=== PATIENT | male | born 1940 | race Caucasian/White ===

== ENCOUNTER 2016-09-10 14:14 | Inpatient (IN) | payer MEDICARE, BC ==
[~2016-09-10] VITALS: Ht 185.4 cm; Wt 110.8 kg
[~2016-09-10 14:14] MED LIST: ACETAMINOPHEN500 M1 PO; BAYER CHEWABLE81 MG PO; BENADRYL25 MG PO; COLACE100 MG PO; CULTURELLE1 CAP; DILAUDID 012 MG/30 M IV; DURAGESIC1 PATCH .1 TRANSDERM; ELIQUIS2.5 MG PO; GLUCOSAMINE HC500 MG PO; LASIX80 MG PO; NS 0.9% IV; ONDANSETRON4 MG/2 M3 IV; PERCOCET 10/3251 TA1 PO; PLAVIX75 MG PO; POTASSIUM99 M1 PO; VITAMIN D5000 UNIT PO; ZOFRAN4 MG PO; [UNRECOGNIZED DRUG - OTHER] IV
[2016-09-10 15:49] LABS: BASOPHILS 0.2 % (0-2); EOSINOPHILS 0.3 % (0-7); HEMATOCRIT 38.7 % (42.0-54.0); HEMOGLOBIN 13.4 g/dL (13.5-17.5); IMMATURE GRANULOCYTES 0.2 % (0-5); MCH 32.4 pg (26.0-34.0); MCHC 34.6 g/dL (31.0-37.0); MCV 93.7 fL (80.0-100.0); MEAN PLATELET VOLUME 9.5 fL (7.4-10.4); MONOCYTES 5.1 % (2-11); NEUTROPHILS 87.2 % (40-80); RBC 4.13 10x6/uL (4.20-6.10); RDW 12.8 % (11.5-14.5); WBC 6.3 10x3/uL (4.8-10.8)
[2016-09-10 16:02] LABS: PLATELET COUNT 142 10x3/uL (130-400)
[2016-09-10 16:27] LABS: ANION GAP 13.3 mmol/L (8-16); CALCIUM 9.5 mg/dL (8.5-10.1); CARBON DIOXIDE 21.9 mmol/L (21.0-32.0); CREATININE - SERUM 1.3 mg/dL (0.6-1.3); POTASSIUM - SERUM 4.2 mmol/L (3.5-5.1)
[2016-09-10 23:11] VITALS: BP 177/81
[2016-09-11] VITALS (7 sets, daily range): BP systolic 119–169; BP diastolic 51–89; Ht 185.4 cm; Wt 110.8 kg
[2016-09-11 05:17] LABS: BASOPHILS 0 % (0-2); EOSINOPHILS 0 % (0-7); HEMATOCRIT 36.9 % (42.0-54.0); HEMOGLOBIN 12.9 g/dL (13.5-17.5); LYMPHOCYTES 6.6 % (15-50); MCH 32.5 pg (26.0-34.0); MCV 92.9 fL (80.0-100.0); MEAN PLATELET VOLUME 9.4 fL (7.4-10.4); MONOCYTES 1.3 % (2-11); NEUTROPHILS 92.1 % (40-80); PLATELET COUNT 124 10x3/uL (130-400); RBC 3.97 10x6/uL (4.20-6.10); RDW 12.5 % (11.5-14.5)
[2016-09-11 05:28] LABS: WBC 3.8 10x3/uL (4.8-10.8)
[2016-09-11 05:48] LABS: ALBUMIN 3.4 g/dL (3.4-5.0); ANION GAP 14.3 mmol/L (8-16); BILIRUBIN - TOTAL 0.5 mg/dL (0.2-1.3); CALCIUM 9.1 mg/dL (8.5-10.1); CARBON DIOXIDE 23.7 mmol/L (21.0-32.0); CREATININE - SERUM 1.4 mg/dL (0.6-1.3); PHOSPHOROUS 2.8 mg/dL (2.5-4.9); PROTEIN - SERUM 6.9 g/dL (6.4-8.2)
--- NOTE | 2016-09-11 07:35 | NUR ---
SHINE RENDONLANJOSELO ADMINISTERED FOR PT C/O HEARTBURN. REMAINS IN DROPLET ISOLATION. ASSESSMENT PERFORMED PER FLOWSHEET. PROVIDED PT WITH SPUTUM CULTURE CUP AND EXPLAINED TO CALL WHEN HE WAS ABLE TO PROVIDE A SPUTUM SAMPLE. PT VERBALIZED UNDERSTANDING. CALL LIGHT IN REACH, WILL CONTINUE WITH PLAN OF CARE.
--- NOTE | 2016-09-11 19:00 | NUR ---
BEDSIDE REPORT RECEIVED AND CARE OF PT ASSUMED. PT LYING IN SEMI SIERRA'S POSITOIN VISITING WITH FAMILY MEMBER. DROPLET ISOLATION PRECAUTIONS ARE IN PLACE. IV IN LEFT HAND PATENT WITH NS INFUSING AT 30 ML / HR. WILL MONITOR CLOSLEY FOR NEEDS. CALL LIGHT WITHIN REACH.
--- NOTE | 2016-09-11 21:46 | NUR ---
HS MEDICATIONS GIVEN. WILL CONTINUE TO MONITOR FOR NEEDS.
--- NOTE | 2016-09-11 23:50 | NUR ---
GAVE DAX OF X2 JF KOTHARI. WILL CONTINUE TO MONITOR FOR NEEDS.
[2016-09-12] VITALS: BP 167/80
--- NOTE | 2016-09-12 03:54 | NUR ---
PT RESTING QUIETLY AT THIS TIME WITH EYES CLOSED AND UNLABORED BREATHING. CALL LIGHT WITHIN REACH.
[2016-09-12 04:00] VITALS: BP 141/71
[2016-09-12 05:26] LABS: ALBUMIN 3.2 g/dL (3.4-5.0); ANION GAP 13.8 mmol/L (8-16); BILIRUBIN - TOTAL 0.3 mg/dL (0.2-1.3); CALCIUM 9.1 mg/dL (8.5-10.1); CARBON DIOXIDE 24.7 mmol/L (21.0-32.0); CREATININE - SERUM 1.7 mg/dL (0.6-1.3); POTASSIUM - SERUM 4.5 mmol/L (3.5-5.1); PROTEIN - SERUM 6.1 g/dL (6.4-8.2)
[2016-09-12 05:56] LABS: BASOPHILS 0 % (0-2); EOSINOPHILS 0 % (0-7); HEMATOCRIT 35.1 % (42.0-54.0); HEMOGLOBIN 12.2 g/dL (13.5-17.5); IMMATURE GRANULOCYTES 0.1 % (0-5); LYMPHOCYTES 4.5 % (15-50); MCH 32.2 pg (26.0-34.0); MCHC 34.8 g/dL (31.0-37.0); MCV 92.6 fL (80.0-100.0); MEAN PLATELET VOLUME 9.7 fL (7.4-10.4); NEUTROPHILS 91.4 % (40-80); PLATELET COUNT 140 10x3/uL (130-400); RBC 3.79 10x6/uL (4.20-6.10); RDW 12.9 % (11.5-14.5)
[2016-09-12 06:04] LABS: WBC 7.3 10x3/uL (4.8-10.8)
[2016-09-12 07:40] VITALS: BP 142/70
--- NOTE | 2016-09-12 07:50 | NUR ---
AWAKE AND ALERT AT THIS TIME. IV TO LEFT HAND PATENT WITH NO S/S OF INFILTRATION PRESENT. REMAINS IN DROPLET ISOLATION. DENIES PAIN OR NEEDS AT THIS TIME. CALL LIGHT IN REACH, WILL CONTINUE WITH PLAN OF CARE.
--- NOTE | 2016-09-12 10:15 | NUR ---
REMAINS IN DROPLET ISOLATION AT THIS TIME. SCHEDULED MEDICATIONS ADMINISTERED AT THIS TIME. IV TO LEFT HAND PATENT. DENIES NEEDS AT THIS TIME. CALL LIGHT IN REACH, WILL CONTINUE WITH PLAN OF CARE.
[2016-09-12 12:24] VITALS: BP 144/67
[2016-09-12 15:34] VITALS: BP 166/79
--- NOTE | 2016-09-12 15:39 | NUR ---
Patient Name: LISHA PRUITT Admission Status: ER Accout number: [id number] Admission Date: 09-11-2016 : 1940 Admission Diagnosis:FLU DUE TO OTH IDENT INFLUENZA VIRUS W OTH RESP MANIFES Attending: HAY Current LOS: 1 Anticipated DC Date: 09-16-2016 Planned Disposition: Home Primary Insurance: MEDICARE A & B Discharge Planning Comments: CM MET WITH PATIENT REGARDING D/C NEEDS AND PLANS. PATIENT STATED HE LIVES ALONE AND HE WILL DRIVE HIMSELF HOME AT DISCHARGE. PATIENT HAS NO STEPS OR STAIRS AT HIS HOME. PATIENT STATED HE IS INDEPENDENT WITH HIS CARE AND HAS A WALKER, CANE, CRUTCHES, AND A BUILT IN SHOWER CHAIR. PATIENTS PCP IS DR. VALDEZ AND PHARMACY IS [facility] [address]. PATIENT DOES NOT WANT HOME HEALTH. CM WILL CONTINUE TO FOLLOW PATIENT WITH D/C NEEDS AND PLANS. PCP DR. [facility] [address] [phone] PETRONA CRENSHAW (FRIEND) [phone] Tying Machine Operator: Nayeli Diallo Is the patient Alert and Oriented? Yes 0 * How many steps to enter\exit or inside your home? 0 0 * PCP DR. VALDEZ 0 * Pharmacy [facility] [address] 0 * Preadmission Environment Home Alone 0 * ADLs Independent 0 * Equipment Cane Crutch Shower Chair Walker 0 * List name and contact numbers for known caregivers / representatives who currently or will assist patient after discharge: PETRONA CRENSHAW [phone] * Community resources currently utilized None 0 * Additional services required to return to the preadmission environment? Yes 0 * Can the patient safely return to the preadmission environment? Yes 0 * Has this patient been hospitalized within the prior 30 days at any hospital? No 0 Grand Total: 0
[2016-09-12 19:00] VITALS: BP 154/79
--- NOTE | 2016-09-12 19:00 | NUR ---
BEDSIDE REPORT RECEIVED AND CARE OF PT ASSUMED. PT LYING IN SEMI SIERRA'S POSITION WATCHING TV. IV IN LEFT HAND PATENT WITH NS INFUSING AT 50 ML / HR. DROPLET ISOLATION PRECATIONS REMAIN IN PLACE. WILL MONITOR CLOSELY FOR NEEDS.
--- NOTE | 2016-09-12 21:30 | NUR ---
HS MEDICATIONS GIVEN. WILL CONTINUE TO MONITOR FOR NEEDS.
--- NOTE | 2016-09-12 21:40 | NUR ---
HS SNACK OF SHERBET GIVEN. WILL CONTINUE TO MONITOR FOR NEEDS.
[2016-09-13] VITALS: BP 169/79
--- NOTE | 2016-09-13 00:32 | NUR ---
PT C/O INDIGESTION AND UNABLE TO SLEEP. GAVE MAAXOX AND BENADRYL PER PRN ORDERS. WILL MONITOR FOR EFFECTIVENESS.
[2016-09-13 04:00] VITALS: BP 167/77
--- NOTE | 2016-09-13 04:43 | NUR ---
PT REFUSED TO HAVE LABS DRAWN THIS AM....STATES THAT HE IS GOING HOME THIS AM.
[2016-09-13 07:36] VITALS: BP 154/69
[2016-09-13] MEDS ORDERED: TAMIFLU75 MG PO (08:56)
[2016-09-13] MEDS ORDERED: STERAPRED DS 1010 MG PO (08:57)
[2016-09-13] MEDS ORDERED: OMNICEF300 MG PO (08:57)
[2016-09-13] MEDS ORDERED: TUSSIONEX PENN473 ML PO (08:58)
--- NOTE | 2016-09-13 09:39 | NUR ---
SCHEDULED MEDICATIONS ADMINISTERED AT THIS TIME. IV TO LEFT HAND D/C WITH CATH TIP INTACT, PT TO D/C HOME TODAY. CALL LIGHT IN REACH, WILL WAIT ON D/C PAPERWORK.
--- NOTE | 2016-09-13 09:45 | NUR ---
CM REASSESSMENT NOTE: PATIENT IS DISCHARGING TODAY AND WILL DRIVE HIMSELF HOME. PATIENT DENIED HOME HEALTH OR ANY OTHER NEEDS FOR DISCHARGE.
--- NOTE | 2016-09-13 10:29 | NUR ---
D/C HOME AT THIS TIME VIA PRIVATE VEHICLE.
== END 2016-09-13 10:30 | disposition home or self-care (01) | DRG 195 ==
LOC: D.ER 14:14 → D.MS 18:13 → OBSVTIME 18:13 → D.MS 09-11 15:44
PROVIDERS: Family Medicine; Nurse Practitioner Acute Care; ADMIT Family Medicine
DX: J10.1 Influenza due to other identified influenza virus with other respiratory manifestations (principal); I25.10 Atherosclerotic heart disease of native coronary artery without angina pectoris; I10 Essential (primary) hypertension; I73.9 Peripheral vascular disease, unspecified; R60.0 Localized edema; Z95.1 Presence of aortocoronary bypass graft

== ENCOUNTER → 2016-12-03 10:02 | Outpatient (CLI) | payer MEDICARE, BC ==
[2016-09-11 06:25] VITALS: BMI 31.0
[~2016-12-03 10:02] MED LIST changes: +OMNICEF300 MG PO; +STERAPRED DS 1010 MG PO; +TAMIFLU75 MG PO; +TUSSIONEX PENN473 ML PO
== END | disposition home or self-care (01) ==
LOC: D.CT 12-02 10:30
DX: N28.89 Other specified disorders of kidney and ureter (principal)

== ENCOUNTER → 2017-02-26 10:48 | Outpatient (CLI) | payer MEDICARE, BC ==
[2016-09-11 06:25] VITALS: BMI 31.0
== END | disposition home or self-care (01) ==
LOC: D.CT 10:48
DX: J01.90 Acute sinusitis, unspecified (principal)

== ENCOUNTER → 2017-04-10 12:30 | Outpatient (CLI) | payer MEDICARE, BC ==
[2016-09-11 06:25] VITALS: BMI 31.0
== END | disposition home or self-care (01) ==
LOC: D.CT 12:30
DX: N28.89 Other specified disorders of kidney and ureter (principal)

== ENCOUNTER 2018-02-25 11:43 | Outpatient (CLI) | payer MEDICARE, BC ==
[~2018-02-25] VITALS: Ht 182.9 cm; Wt 122.7 kg
--- NOTE | ~2018-02-25 | OP ---
PATIENT NAME: LISHA PRUITT MEDICAL RECORD: [id number] :[birth year] LOCATION:D.CAT ADMISSION DATE: SURGEON: HATTIE MONAHAN MD DATE OF OPERATION: 02/25/2018 PROCEDURES: AFRO, intervention to the left SFA. DESCRIPTION OF PROCEDURE: After a 5-Andorran sheath was placed in right femoral artery, the pigtail catheter was placed at the level of the renal arteries. Aortography shows some plaquing of the aortic wall itself with no evidence of abdominal aneurysm or aortic dissection. RIGHT ILIAC SYSTEM: Right iliac system shows some wall disease without significant stenosis. FEMORAL SYSTEM: The deep femoral system shows some wall disease. Superficial system fills the level of the popliteal. The popliteal itself is totally occluded with bridging collaterals with 2-vessel runoff proximal to the popliteal, probably not amenable to percutaneous intervention. LEFT ILIAC SYSTEM: Free of disease. The left superficial femoral artery at the distal portion shows severe diffuse 80% stenosis with 2-vessel runoff distally. IMPRESSION: Intervention to the left SFA momentarily. DESCRIPTION OF PROCEDURE: After the Glidewire was placed distally into the popliteal, stents deployed were two 5 x 60 SMART stents. They were deployed in tandem. Post-deployment balloon used was a 6.0 x 60 mm Powerflex balloon up to 10 atmospheres throughout both areas of stenting. It showed excellent resolution of 80% stenosis with improved runoff distally. Sheath was closed with ExoSeal device. Plavix was loaded in the lab. IMPRESSION: Successful CRIMPING PRESS OPERATOR and stenting to the left SFA, not amenable disease to the right at this time. TRANSINT:[id number] Voice Confirmation ID: [id number] DOCUMENT ID: [id number] HATTIE MONAHAN MD at 1309 CC: [id number] DICTATION DATE: 02/25/18 1458 SECURITIES TRADER: 02/25/18 1809 DEP CLI 02/25/18 [place] [id number]
--- NOTE | ~2018-02-25 | HEMODYNAMI ---
PATIENT:LISHA PRUITT MEDICAL RECORD: [id number] : 36 LOCATION:[facility] ADMISSION DATE: 02/25/18 Generatedon:02/25/201814:57 Patient name: LISHA PRUITT Patient #: [id number] SSN: : 1940 Date of study: 02/25/2018 Page: Of Hemodynamic Procedure Report Patient Data Patient Demographics Procedure consent was obtained First Name: LISHA Gender: Male Last Name: SONAL : 1940 [facility] Initial: D Age: 77 year(s) Patient #: [id number] Race: Unknown Additional ID: [id number] Contact details [address]: [address] [place] [address] [address]IVE State: [place] City: [place] Zip code: [address] Admission Admission Data Admission Date: 02/25/2018 Admission Time: 11:43 Procedure Procedure Types Cath Procedure Diagnostic Procedure Sedation Charges Moderate Sedation up to 30 minutes Peripheral Cath Diagnostic Procedure Manager Corporate Marketing Peripheral Procedures Qwgei-Qacszuy-Mdk-Off Peripheral vascular Intervention Stent Stent-Fem/Popw/plasty Procedure Description Procedure Date Procedure Date: 02/25/2018 Procedure Start Time: 14:06 Procedure End Time: 14:53 Procedure Staff Name Function Serafin Godwin MD Performing Physician Kati Rodriguez RT Monitor Marisela Terrazas RT Scrub Jason Avalos RN Nurse Procedure Data Cath Procedure Fluoroscopy Diagnostic fluoroscopy Total fluoroscopy Time: time: 17.1 min 17.1 min Diagnostic fluoroscopy Total fluoroscopy dose: dose: 1136 mGy 1136 mGy Contrast Material Contrast Material Type Amount (ml) Isovue 300 114 Entry Location Entry Primary Successful Side Size Upsize Upsize Entry Closure Succes sful Closure Location (Fr) 1 (Fr) 2 (Fr) Remarks Device Remarks Femoral Right 5 Fr 6 Fr 6 Fr Exoseal artery Long Short Estimated blood loss: 5 ml Diagnostic catheters Device Type Used For End Catheter Placement DIAGNOSTIC Pigtail 5Fr Multi-vessel catheter ([id number]) Angiography DIAGNOSTIC IMT 5Fr Multi-vessel Catheter ([id number]) Angiography Procedure Complications No complications Procedure Medications Medication Administration Route Dosage 0.9% NaCl I.V. 100 ml/hr Oxygen etCO2 Nasal cannula 2 l/min Heparin Flush Bag added to field 2 bags (1000units/500ml NS) Lidocaine 2% added to field 20 Versed I.V. 1 mg Fentanyl I.V. 50 mcg Versed I.V. 1 mg Fentanyl I.V. 50 mcg Heparin Bolus I.V. 5000 units Integrilin (Bolus I.V. 11.3 ml 2mg/ml) Integrilin (Bolus wasted 8.7 ml 2mg/ml) Plavix P.O. 600 mg Hemodynamics Rest Heart Rate: 73 (bpm) Snapshots Pre Cath Intra NCS Post Cath Vital Signs Time Heart Resp SPO2 etCO2 NIBP (mmHg) Rhythm Pain Sedation Rate (ipm) (%) (mmHg) Status Level (bpm) 13:58:51 79 11 100 0 197/97(159) NSR 0 (11) 10(A) , No pain 14:03:18 73 17 100 0 177/89(144) NSR 0 (11) 10(A) , No pain 14:07:44 76 15 100 0 181/90(148) NSR 0 (11) 10(A) , No pain 14:12:04 78 14 100 0 176/90(139) NSR 0 (11) 10(A) , No pain 14:16:30 78 15 100 0 164/89(134) NSR 0 (11) 9(A) , No pain 14:20:52 77 15 100 0 176/90(144) NSR 0 (11) 9(A) , No pain 14:25:17 77 14 100 0 182/93(148) NSR 0 (11) 9(A) , No pain 14:29:41 75 13 100 0 173/95(153) NSR 0 (11) 10(A) , No pain 14:34:05 77 14 100 0 182/94(149) NSR 0 (11) 10(A) , No pain 14:38:29 77 15 100 0 179/100(153) NSR 0 (11) 10(A) , No pain 14:42:53 83 14 100 0 196/100(158) NSR 0 (11) 10(A) , No pain 14:47:20 77 14 100 0 196/98(159) NSR 0 (11) 10(A) , No pain 14:51:50 80 17 99 0 196/103(153) NSR 0 (11) 10(A) , No pain Medications Time Medication Route Dose Verified Delivered Reason Notes Effectiveness by by 13:59:29 0.9% NaCl I.V. 100 Jason Jason Per physician ml/hr Bailey Avalos RN RN 13:59:37 Oxygen etCO2 2 Jason Jason Per physician Nasal l/min Bailey Avalos cannula RN RN 13:59:47 Heparin Flush added 2 Jason Jason used for Bag to bags Bailey Avalos procedure (1000units/500ml RN RN NS) 13:59:56 Lidocaine 2% added 20ml Jason Jason for local to vial Lortanesha Avalos anesthetic RN RN 14:04:32 Versed I.V. 1 mg Jason Jason for sedation Bailey Avalos RN RN 14:04:40 Fentanyl I.V. 50 Jason Jason for sedation mcg Bailey Avalos RN RN 14:19:22 Versed I.V. 1 mg Jason Jason for sedation Bailey Avalos RN RN 14:19:27 Fentanyl I.V. 50 Jason Jason for sedation mcg Bailey Avalos RN RN 14:30:15 Heparin Bolus I.V. 5000 Jason Jason for units Bailey Avalos anticoagulation RN RN 14:30:33 Integrilin I.V. 11.3 Jason Jason for (Bolus 2mg/ml) ml Bailey Avalos antiplatelet RN RN therapy 14:30:44 Integrilin wasted 8.7 Jason Jason to sharp's (Bolus 2mg/ml) ml Bailey Avalos RN RN 14:49:41 Plavix P.O. 600 Jason Jason for mg Bailey Avalos antiplatelet RN RN therapy Procedure Log Time Note 13:48:24 Informed consent obtained and on chart 13:48:48 Jason Avalos RN sent for patient. Start room use. 13:48:49 Time tracking: Regular hours (M-F 7:00 - 5:00) 13:48:53 Plan of Care:Hemodynamics will remain stable., Cardiac rhythm will remain stable., Comfort level will be maintained., Respiratory function will remain adequate., Patient/ family verbilizes understanding of procedure., Procedure tolerated without complication., Recovers from procedure without complications.. 13:48:59 Patient received from Pre/Post Procedure Room to CCL 2 Alert and oriented. Tansferred to table in Supine position. 13:49:01 Warm blankets applied, and robert hugger turned on for patient comfort. 13:49:02 Correct patient and procedure confirmed by team. 13:49:02 ECG and BP/O2 sat monitors applied to patient. 13:49:03 Vital chart was started 13:59:29 0.9% NaCl 100 ml/hr I.V. was administered by Jason Avalos RN; Per physician; 13:59:37 Oxygen 2 l/min etCO2 Nasal cannula was administered by Jason Avalos RN; Per physician; 13:59:47 Heparin Flush Bag (1000units/500ml NS) 2 bags added to field was administered by Jason Avalos RN; used for procedure; 13:59:56 Lidocaine 2% 20ml vial added to field was administered by Jason Avalos RN; for local anesthetic; 14:00:26 Baseline sample Acquired. 14:00:30 Rhythm: sinus rhythm 14:00:32 Full Disclosure recording started 14:00:35 H&P Date Dictated: 02/25/2018 Within 30 days and on chart., H&P Addendum completed by physician on day of procedure. (MUST COMPLETE FOR ALL OUTPATIENTS). 14:00:36 Pre-procedure instructions explained to patient. 14:00:37 Pre-op teaching completed and patient verbalized understanding. 14:00:38 Family in waiting room. 14:00:40 Is the patient allergic to Iodine/contrast media? No. 14:00:41 Was the patient premedicated? No 14:00:52 Is patient on blood thinner?No 14:00:54 Patient diabetic? No. 14:00:56 Previous problem with sedation/anesthesia? No ? 14:00:58 Snore? Yes 14:00:59 Sleep apnea? No 14:00:59 Deviated septum? No 14:01:00 Opens mouth fully? Yes 14:01:01 Sticks out tongue? Yes 14:01:02 Airway obstruction? No ? 14:01:05 Dentures? No ? 14:01:20 Pre procedure: right dorsailis pedis pulse Doppler 14:01:23 Pre procedure: left dorsailis pedis pulse 1+ Palpable, but thready & weak; easily obliterated 14:01:26 Patient pain scale 0/10 ?. 14:01:33 IV patent on arrival in left forearm with 0.9% NaCl at [facility]. 14:01:35 Lab results completed and on chart. 14:01:44 Bilateral groins area was prepped with chlora-prep and draped in sterile fashion 14:01:45 Alarms reviewed by R. N. 14:01:46 Sharps counted by scrub and verified by R.N. 14:02:32 Physician arrived 14:02:32 --------ALL STOP TIME OUT------ 14::32 Final Timeout: patient, procedure, and site verified with staff and physician. All members of the team are in agreement. 14:02:35 Bilateral groins site verified by team. 14:02:38 Physical assessment completed. ASA score P 2 - A patient with mild systemic disease as per Serafin Godwin MD. 14:02:43 Sedation plan: IV Moderate Sedation Medication:Versed, Fentanyl 14:02:48 Use device set Femoral Dx 14:02:49 ACIST Syringe (36924) opened to sterile field. 14:02:49 Bag Decanter (2002S) opened to sterile field. 14:02:50 Medline Cath Pack ([id number]) opened to sterile field. 14:02:51 DIAGNOSTIC WIRE .035 260cm J wire (789809) opened to sterile field. 14:02:57 ACIST Hand Control (03180) opened to sterile field. 14:02:58 ACIST Manifold (23170) opened to sterile field. 14:03:00 Tegaderm 4 x 4 (1626W) opened to sterile field. 14:03:04 SHEATH 5FR [place] (BEH035) opened to sterile field. 14:04:32 Versed 1 mg I.V. was administered by Jason Avalos RN; for sedation; 14:04:40 Fentanyl 50 mcg I.V. was administered by Jason Avalos RN; for sedation; 14:06:19 Procedure started. 14:06:29 Local anesthetic to right femoral artery with Lidocaine 2% by Serafin Godwin MD.INITIAL ACCESS ONLY 14:06:38 A 5 Fr sheath was inserted into the Right Femoral artery 14:07:03 A DIAGNOSTIC Pigtail 5Fr catheter ([id number]) was advanced over the wire and used for Multi-vessel Angiography. 14:07:16 Abdominal angiogram w/ runoff was performed. 14:11:52 INFLATOR Merit BasixCompak (SU2469) opened to sterile field. 14:13:02 A DIAGNOSTIC IMT 5Fr Catheter ([id number]) was advanced over the wire and used for Multi-vessel Angiography. 14:13:24 GLIDE WIRE Super Stiff Angled 260cm (TY3735) opened to sterile field. 14:14:06 SHEATH 6FR ARROW 45cm (CL-53228) opened to sterile field. 14:18:43 TORQUE DEVICE PLASTIC .038 ( TD01) opened to sterile field. 14:19:00 Catheter removed. 14:19:22 Versed 1 mg I.V. was administered by Jason Avlaos RN; for sedation; 14:19:27 Fentanyl 50 mcg I.V. was administered by Jason Avalos RN; for sedation; 14:21:55 Sheath upsized to a 6 Fr Long. 14:29:15 glide wire advanced. 14:30:15 Heparin Bolus 5000 units I.V. was administered by Jason Avalos RN; for anticoagulation; 14:30:33 Integrilin (Bolus 2mg/ml) 11.3 ml I.V. was administered by Jason Avalos RN; for antiplatelet therapy; 14:30:44 Integrilin (Bolus 2mg/ml) 8.7 ml wasted was administered by Jason Avalos RN; to sharp's; 14:32:14 SMART Flex 5 X 60 X 120 stent ([id number]) was deployed across Distal Superficial Femoral, Left . 14:32:31 Stent catheter was removed intact over wire. 14:36:29 Inflate balloon Inflation number: 1 A POWERFLEX PRO 6.0 X 60 X 135 balloon ([id number]) was prepped and advanced across the Distal Superficial Femoral, Left, then inflated to 12 FELIX for 0:10 (min:sec). 14:37:19 Inflation number: 2 The POWERFLEX PRO 6.0 X 60 X 135 balloon ([id number]) was reinflated across the Distal Superficial Femoral, Left, to 12 FELIX for 0:10 (min:sec). 14:39:08 Balloon removed over the wire. 14:39:23 SHEATH 6FR [place] (FNS767) opened to sterile field. 14:43:26 SMART Flex 5 X 60 X 120 stent ([id number]) was deployed across Distal Superficial Femoral, Left . 14:43:32 Stent catheter was removed intact over wire. 14:46:06 Inflation number: 3 The POWERFLEX PRO 6.0 X 60 X 135 balloon ([id number]) was reinflated across the Distal Superficial Femoral, Left, to 14 FELIX for 0:30 (min:sec). 14:47:06 Inflation number: 4 The POWERFLEX PRO 6.0 X 60 X 135 balloon ([id number]) was reinflated across the Distal Superficial Femoral, Left, to 14 FELIX for 0:10 (min:sec). 14:47:38 Balloon removed over the wire. 14:48:41 Sheath upsized to a 6 Fr Short. 14:48:44 Wire removed. 14:48:55 EXOSEAL 6Fr (EX600) opened to sterile field. 14:49:05 Sheath removed intact; hemostasis achieved with Exoseal to the Right Femoral artery. 14:49:41 Plavix 600 mg P.O. was administered by Jason Avalos RN; for antiplatelet therapy; 14:49:50 Procedure ended.(Physican Out) 14:50:59 Fluoroscopy time 17.10 minutes. 14:51:11 Fluoroscopy dose: 1136 mGy 14:51:11 Flurop Dose total: 1136 14:51:14 Contrast amount:Isovue 300 114ml. 14:51:18 Sharps counted by scrub and verified by R.N. 14:51:19 Insertion/operative site no bleeding no hematoma. 14:51:23 Post-op/insertion site Right Femoral artery dressed using a 4 x 4 and Tegaderm. 14:51:26 Post right femoral artery:stable 14:51:27 Post Procedure Pulses reassessed and unchanged 14:51:49 Post procedure rhythm: unchanged. 14:51:52 Estimated blood loss: 5 ml 14:51:53 Post procedure instruction explained to patient.Patient verbalizes understanding. 14:51:53 Patient needs reinforcement of post procedure teaching. 14:52:12 Procedure type changed to Cath procedure, Diagnostic procedure, Sedation Charges, Moderate Sedation up to 30 minutes, Peripheral Cath Diagnostic Procedure, Manager Corporate Marketing Peripheral Procedures, Picqg-Dguiknp-Jrf-Off, Peripheral vascular Intervention, Stent, Stent-Fem/Popw/plasty 14:52:47 Procedure and supply charges have been captured, reviewed, submitted and are correct. 14:52:51 Procedure Complication : No complications 14:52:53 Vital chart was stopped 14:53:08 Report given to Pre/Post Procedure Room. 14:53:11 Patient transfered to Pre/Post Procedure Room with Stretcher. 14:53:13 Procedure ended. 14:53:13 Full Disclosure recording stopped 14:53:21 ACC-PCI Only Patient was given prescriptions, or instructed by Serafin Godwin MD to start/continue the following medications upon discharge: Plavix 14:53:23 End room use (Document Last) Intervention Summary Intervention Notes Time ActionType Lesion and Equipment Action# Pressure Duration Attributes Used 14:32:14 Deploy self Distal SMART Flex 1 expanding Superficial 5 X 60 X stent Femoral, 120 stent Left ([id number]) 14:36:29 Inflate Distal POWERFLEX 1 12 00:10 balloon Superficial PRO 6.0 X Femoral, 60 X 135 Left balloon ([id number]) 14:37:19 Reinflate Distal POWERFLEX 2 12 00:10 balloon Superficial PRO 6.0 X Femoral, 60 X 135 Left balloon ([id number]) 14:43:26 Deploy self Distal SMART Flex 1 expanding Superficial 5 X 60 X stent Femoral, 120 stent Left ([id number]) 14:46:06 Reinflate Distal POWERFLEX 3 14 00:30 balloon Superficial PRO 6.0 X Femoral, 60 X 135 Left balloon ([id number]) 14:47:06 Reinflate Distal POWERFLEX 4 14 00:10 balloon Superficial PRO 6.0 X Femoral, 60 X 135 Left balloon ([id number]) Device Usage Item Name Manufacture Quantity Catalog Number Hospital Part Current Minim al Lot# / Charge Number Stock Stock Serial# Code ACIST Acist 1 02475 847132 950501 309438 20 Syringe Medical (70754) Systems Inc Bag Microtek 1 522368 09729 347709 5 Decanter Medical Inc. () Medline Medline 1 [id number] 155620 91787 083274 5 Cath Pack ([id number]) DIAGNOSTIC [facility] [place] 1 227080 778036 860425 197929 30 WIRE .035 260cm J wire (319679) ACIST Hand Acist 1 54449 172319 155953 084619 5 Control Medical (30365) Systems Inc ACIST Acist 1 41487 612421 447548 189821 5 Manifold Medical (41236) Systems Inc Tegaderm 4 3M 1 1626W 129211 624055 450432 5 x 4 (1626W) SHEATH 5FR Terumo 1 JJV318 680236 429086 766897 40 [place] (KQG014) DIAGNOSTIC Cardinal 1 [id number] 055073 463717 411148 5 Pigtail 5Fr Health catheter (873606P) INFLATOR Merit 1 BY4175 275421 639082 210358 15 Merit Medical BasixCompak (HW6586) DIAGNOSTIC [place] 1 [id number] 445217 386611 84914 5 IMT 5Fr Scientific Catheter ([id number]) GLIDE WIRE Terumo 1 XM0138 210108 684557 257495 5 Super Stiff Angled 260cm (SG1644) SHEATH 6FR Teleflex 1 CL-61449 425437 625452 846523 5 ARROW 45cm (CL-46481) TORQUE [place] 1 TD01 676180 789257 360557 5 DEVICE Scientific PLASTIC .038 ( TD01) SMART Flex Cardinal 2 [id number] 120332 653176 0 20131 5 X 60 X Health 02002 120 stent ([id number]) POWERFLEX Cardinal 1 [id number] 541428 232419 480259 5 PRO 6.0 X Health 60 X 135 balloon ([id number]) SHEATH 6FR Terumo 1 PTA350 864564 625971 287518 40 [place] ([id number]) EXOSEAL 6Fr Cardinal 1 EX600 566567 898735 280482 10 (EX600) Health Signature Audit [place] Stage Time Signature Unsigned Intra-Procedure 02/25/2018 Kati Rodriguez 2:57:14 PM RT(R) Signatures Monitor : Kati Rodriguez RT Signature : Date : Time : [facility] [address] [place] [address]
[2018-02-25 12:15] VITALS: BP 160/78; Ht 182.9 cm; Wt 122.7 kg
[2018-02-25 12:33] LABS: EOSINOPHILS 4.2 % (0-7); HEMOGLOBIN 12.7 g/dL (13.5-17.5); IMMATURE GRANULOCYTES 0.2 % (0-5); LYMPHOCYTES 24.7 % (15-50); MCH 30.3 pg (26.0-34.0); MCHC 34.3 g/dL (31.0-37.0); MCV 88.3 fL (80.0-100.0); MEAN PLATELET VOLUME 9.3 fL (7.4-10.4); MONOCYTES 7.1 % (2-11); NEUTROPHILS 62.8 % (40-80); RBC 4.19 10x6/uL (4.20-6.10); RDW 13.3 % (11.5-14.5); WBC 5.1 10x3/uL (4.8-10.8)
[2018-02-25 12:34] LABS: PLATELET COUNT 181 10x3/uL (130-400)
[2018-02-25 12:42] LABS: ANION GAP 10.6 mmol/L (8-16); CALCIUM 9.1 mg/dL (8.5-10.1); CARBON DIOXIDE 27.5 mmol/L (21.0-32.0); CREATININE - SERUM 1.5 mg/dL (0.6-1.3); POTASSIUM - SERUM 4.1 mmol/L (3.5-5.1)
[2018-02-25] MEDS ORDERED: PLAVIX75 MG PO (15:03)
[2018-02-25] MEDS ORDERED: BAYER CHEWABLE81 MG PO (15:03)
== END 2018-02-25 19:00 ==
LOC: D.CATH 11:43
PROVIDERS: Internal Medicine Interventional Cardiology
DX: I70.219 Atherosclerosis of native arteries of extremities with intermittent claudication, unspecified extremity (principal); I70.92 Chronic total occlusion of artery of the extremities; Z01.812 Encounter for preprocedural laboratory examination